=== PATIENT | male | born 1985 | race Caucasian/White ===

== ENCOUNTER 2019-03-19 09:15 | Observation (INO) | payer OTHER ==
[~2019-03-19 09:15] MED LIST: DEXAMETHASONE INJ 10 MG/ML VIAL ONE; KETOROLAC TROMETHAMINE INJ 30 MG/ML VIAL ONE; LIDOCAINE 1% 10 ML VIAL INJ ONE; ONDANSETRON INJ 4 MG/2 ML VIAL ONE; PROPOFOL 200 MG/20 ML VIAL IV ONE
--- NOTE | 2019-03-19 09:57 | RAD ---
EXAM DESCRIPTION: Abdomen Series CLINICAL HISTORY: 33 years Male, rt sided abd pain 12 hours COMPARISON: None. Findings: Three radiographs No acute cardiopulmonary abnormality. The lungs are clear. No pneumothorax. No pleural effusion. No free air. Moderate stool volume. Nonobstructive bowel gas pattern. No air-fluid level. No suspicious calcification identified. No acute osseous abnormality. IMPRESSION: No acute radiographic abnormality. Electronically signed by: Bryn Walker MD 03/19/2019 9:55 AM ECHOCARDIOGRAPH TECHNICIAN
--- NOTE | 2019-03-19 11:10 | CT ---
EXAM DESCRIPTION: Abdomen/Pelvis w/Contrast CLINICAL HISTORY: 33 years Male, rlq pain 24 hr, leukocytosis COMPARISON: Abdominal radiographs 07/18/2019 TECHNIQUE: CT of the abdomen and pelvis acquired with IV contrast material. Coronal and sagittal reformations provided. This exam was performed according to our departmental dose-optimization program, which includes automated exposure control, adjustment of the mA and/or kV according to patient size and/or use of iterative reconstruction technique. FINDINGS: Lung bases: Dependent atelectasis bilaterally. Solid Organs: Unremarkable liver, gallbladder, spleen, pancreas, adrenal glands, and kidneys. No hydronephroureter. GI tract: Normal stomach. No small bowel obstruction. Moderate stool in the proximal colon. Dilated thickened fluid-filled appendix measuring up to 10 mm with moderate periappendiceal stranding. No surrounding drainable fluid collection. Vascular: Normal. Musculoskeletal and soft tissues: No acute fracture or aggressive appearing osseous lesion. Chronic appearing bilateral L5 pars defects with trace anterolisthesis of L5 relative S1. Soft tissues unremarkable. Urinary bladder: Normal. Prostate: Normal. Other: None. IMPRESSION: 1. Acute uncomplicated appendicitis without periappendiceal fluid collection or intra-abdominal free air. Electronically signed by: René Waters MD 03/19/2019 11:08 AM ROUTE SALES DRIVER
[2019-03-19] MEDS ORDERED: SODIUM CHLORIDE 0.9% 1000ML 1,000 ML IVS ONE (11:26)
[2019-03-19] MEDS ORDERED: ceFAZolin SODIUM 2 GM in SODIUM CHLORIDE 0.9% 100ML 100 ML IVPB ONE (11:26)
[2019-03-19] MEDS ORDERED: ceFAZolin SODIUM 1 GM VIAL ONE (11:45)
[2019-03-19] MEDS ORDERED: SODIUM CHLORIDE 0.9% 100ML 0 ML IVPB ONE (11:45)
[2019-03-19] MEDS ORDERED: cefOXitin SODIUM 2 GM in SODIUM CHL 0.9% 50ML MIN-BAG+ 50 ML IVPB ONE (11:48)
[2019-03-19] MEDS ORDERED: SODIUM CHL 0.9% 50ML MIN-BAG+ 50 ML IVPB ONE ×2 (11:51→16:29)
[2019-03-19] MEDS ORDERED: cefOXitin SODIUM 2 GM INJ IVPB ONE ×2 (11:51→16:30)
--- NOTE | 2019-03-19 11:56 | ED.PDOC ---
History of Present Illness - General Chief Complaint: Abdominal Pain Stated Complaint: right sided belly pain since last night Time Seen by Provider: 03/19/19 09:28 Source: patient Exam Limitations: no limitations - History of Present Illness Initial Comments: the patient is a 33-year-old male presenting to the emergency room secondary to about 18 hours of right lower quadrant pain. No fever. No vomiting. He has had some nausea. No diarrhea. No previous abdominal surgeries. No previous pain in that location. No recent injuries. He does not take any blood thinners. No daily medicines. Pain is worse with palpation and movement. He is not hungry. He did not eat breakfast. Timing/Duration: other Severity: moderate Improving Factors: immobilization Worsening Factors: movement Associated Symptoms: malaise, nausea/vomiting Allergies/Adverse Reactions: Allergies NO KNOWN ALLERGY Allergy (Verified 03/19/19 09:22) Home Medications: Ambulatory Orders NK 03/19/19 Review of Systems - Review of Systems Constitutional: States: malaise EENTM: States: no symptoms reported Respiratory: States: no symptoms reported Cardiology: States: no symptoms reported Gastrointestinal/Abdominal: States: abdominal pain, nausea Genitourinary: States: no symptoms reported Musculoskeletal: States: no symptoms reported Skin: States: no symptoms reported Neurological: States: no symptoms reported Endocrine: States: no symptoms reported All other Systems: No Change from Baseline Past Medical History (General) - Patient Medical History Hx Seizures: No Hx Stroke: No Hx Dementia: No Hx Asthma: No Hx of COPD: No Hx Cardiac Disorders: No Hx Congestive Heart Failure: No Hx Pacemaker: No Hx Hypertension: No Hx Thyroid Disease: No Hx Diabetes: No Hx Gastroesophageal Reflux: No Hx Renal Disease: No Hx Cancer: No Hx Hepatitis C: No - Vaccination History Hx Tetanus, Diphtheria Vaccination: Yes Hx Influenza Vaccination: Yes Hx Pneumococcal Vaccination: No Immunizations Up to Date: Yes - Social History Hx Tobacco Use: No Hx Chewing Tobacco Use: No Hx Alcohol Use: Yes - SOCIAL Hx Substance Use: No Hx Substance Use Treatment: No Hx Depression: No Feels Threatened In Home Enviroment: No Feels Threatened In a Relationship: No Hx Physical Abuse: No Hx Emotional Abuse: No Hx Suspected Abuse: No - Female History Patient is a Female of Child Bearing Age (10 -59 yrs old): No Patient : No Family Medical History - Family History Mother Family History: No Known Living Status: Still Living Hx Family Asthma: No Hx Family Congestive Heart Failure: No Hx Family Hypertension: No Physical Exam - Physical Exam General Appearance: Alert Eye Exam: bilateral normal Ears, Nose, Throat: hearing grossly normal, normal ENT inspection Neck: full range of motion, supple Respiratory: lungs clear, normal breath sounds, no respiratory distress, no accessory muscle use Cardiovascular/Chest: normal peripheral pulses, regular rate, rhythm, no edema Peripheral Pulses: radial,right: 2+, radial,left: 2+ Gastrointestinal/Abdominal: soft, other - the patient does have right lower quadrant tenderness to palpation as well as some guarding. Rectal Exam: deferred Back Exam: no CVA tenderness, no vertebral tenderness Extremity: normal range of motion, non-tender, normal inspection, no pedal edema, normal capillary refill Neurologic: photographic editor II-XII nml as tested, alert, normal mood/affect, oriented x 3 Skin Exam: normal color Comments: Vital Signs - 24 hr 03/19/19 09:58 Temperature 98 F Pulse Rate [ 72 Left Radial] Respiratory 18 Rate Blood Pressure 126/88 [Left Arm] O2 Sat by Pulse 100 Oximetry Progress - Progress Progress: 03/19/19 12:00 the patient's 33-year-old male presenting to the emergency room secondary to what appears to be acute appendicitis. The patient has been started on antibiotics. General surgery has been contacted for evaluation. Plan will be for an appendectomy. The patient will remain nothing by mouth. Pain medications as needed. He is receiving a liter of IV fluids. - Results/Orders Results/Orders: Laboratory Tests 03/19/19 03/19/19 03/19/19 09:35 09:35 09:35 WBC 13.4 H RBC 4.91 Hgb 15.6 Hct 45.1 MCV 91.8 MCH 31.8 H MCHC 34.7 RDW 13.5 Plt Count 238 MPV 8.7 Absolute Neuts (auto) 10.50 H Absolute Lymphs (auto) 1.70 Absolute Monos (auto) 1.00 H Absolute Eos (auto) 0.20 Absolute Basos (auto) 0.00 Neutrophils % 78.4 H Lymphocytes % 12.8 L Monocytes % 7.2 Eosinophils % 1.2 Basophils % 0.4 Sodium 139 Potassium 4.2 Chloride 105 Carbon Dioxide 25 Anion Gap 13.2 BUN 14 Creatinine 0.76 BUN/Creatinine Ratio 18.4 Random Glucose 104 Serum Osmolality 278.3 Lactic Acid 0.9 Calcium 9.5 Total Bilirubin 1.0 AST 16 ALT 27 Alkaline Phosphatase 35 L Serum Total Protein 7.5 Albumin 4.9 Globulin 2.6 Albumin/Globulin Ratio 1.9 Amylase 32 Urine Color Urine Appearance Urine pH Ur Specific [place] Urine Protein Urine Glucose (UA) Urine Ketones Urine Blood Urine Nitrite Urine Bilirubin Urine Urobilinogen Ur Leukocyte Esterase Urine RBC Urine WBC Ur Epithelial Cells Amorphous Sediment Urine Bacteria Urine Mucus 03/19/19 09:35 WBC RBC Hgb Hct MCV MCH MCHC RDW Plt Count MPV Absolute Neuts (auto) Absolute Lymphs (auto) Absolute Monos (auto) Absolute Eos (auto) Absolute Basos (auto) Neutrophils % Lymphocytes % Monocytes % Eosinophils % Basophils % Sodium Potassium Chloride Carbon Dioxide Anion Gap BUN Creatinine BUN/Creatinine Ratio Random Glucose Serum Osmolality Lactic Acid Calcium Total Bilirubin AST ALT Alkaline Phosphatase Serum Total Protein Albumin Globulin Albumin/Globulin Ratio Amylase Urine Color Yellow Urine Appearance Clear Urine pH 5.5 Ur Specific [place] 1.025 Urine Protein Negative Urine Glucose (UA) Negative Urine Ketones >=160 Urine Blood Trace-lysed H Urine Nitrite Negative Urine Bilirubin Negative Urine Urobilinogen 0.2 Ur Leukocyte Esterase Negative Urine RBC 0-1 Urine WBC 0 Ur Epithelial Cells 0 Amorphous Sediment 1+ Urine Bacteria [address] scan of abdomen and pelvis shows acute appendicitis without perforation or abscess formation. He has a chronic pars defect. No acute pathology otherwise. See report for details. Moderate stool. Departure - Departure Clinical Impression: Appendicitis Qualifiers: Appendicitis type: acute appendicitis Acute appendicitis type: with localized peritonitis Appendicitis gangrene presence: unspecified whether gangrene present Appendicitis perforation presence: without perforation Appendicitis abscess presence: without abscess Qualified Code(s): K35.30 - Acute appendicitis with localized peritonitis, without perforation or gangrene Disposition: Admit Patient Departure Forms: ED Discharge - Pt. Copy, Patient Portal Self Enrollment Home Medications: Ambulatory Orders NK 03/19/19 Decision To Admit - Decistion To Admit Decision to Admit Reason: Medical Nature Decision to Admit Date: 03/19/19 Decision to Admit Time: 12:01
[2019-03-19] MEDS ORDERED: ROCURONIUM BROMIDE 10 MG/ML VIAL ONE (11:58)
[2019-03-19] MEDS ORDERED: BUPIVACAINE 0.25% W/EPI 50 ML VIAL INJ ONE ×2 (12:00→12:39)
[2019-03-19] MEDS ORDERED: MIDAZOLAM INJ 2 MG/2 ML VIAL ONE (12:10)
[2019-03-19] MEDS ORDERED: fentaNYL CITRATE INJ 50 MCG/ML AMP ONE (12:10)
[2019-03-19] MEDS ORDERED: ELECTROLYTE-A 1,000 ML IVS ONE (13:01)
--- NOTE | 2019-03-19 13:18 | HP ---
CHIEF COMPLAINT: Abdominal pain. HISTORY OF PRESENT ILLNESS: The patient is a 33-year-old male in his normal state of health who developed epigastric discomfort yesterday that moved to his right lower quadrant and worsened. There has been no fever, no nausea, vomiting, no change in bowel habits. He has no previous episode of like illness. PAST MEDICAL HISTORY: 1. Multiple orthopedic procedures. 2. Concussion. He has had no other hospitalizations and on abdominal operations. He has no history of anesthesia complications. MEDICATIONS: He takes no medications on a routine basis. ALLERGIES: NO KNOWN DRUG ALLERGIES. FAMILY HISTORY: Negative for diabetes, anesthesia complications or GI malignancies. SOCIAL HISTORY: He does not smoke. He drinks approximately once a week. REVIEW OF SYSTEMS: Otherwise no headaches, shortness of breath, chest pain. No change in bowel habits. No blood per rectum, no melanotic stools and no hematemesis. He denies urinary tract symptoms. There is no problem with his back. PHYSICAL EXAMINATION: GENERAL: The patient is awake, alert, cooperative, in moderate distress. VITAL SIGNS: The patient is currently afebrile, normotensive. HEENT: Sclerae nonicteric. Mucous membranes moist. NECK: Without adenopathy. BACK: Without CVA tenderness. CHEST: Equal breath sounds bilaterally and are clear. HEART: Regular rate and rhythm. ABDOMEN: Soft. Tender in the right lower quadrant with some guarding. RECTAL: Deferred. EXTREMITIES: Without cyanosis, clubbing or edema. LABORATORY: CT scan reveals an uncomplicated appendicitis without periappendiceal fluid or abscess and no free air. His white blood cell count was 13,000, hemoglobin 15.6, platelet count 238,000, 78% neutrophils. Chemistry shows potassium 4.2, creatinine 0.76. Liver functions within normal limits. Amylase 32. Urinalysis essentially clear except for ketones. Specific gravity 1.025. ASSESSMENT: 1. Abdominal pain. 2. Leukocytosis 3. Abnormal CT scan suspicious for appendicitis. PLAN: The risks, benefits and alternatives to laparoscopic appendectomy were discussed with the patient. He understands and agrees to proceed. He will be given 2 grams of Mefoxin prior to surgery. [id number]
[2019-03-19] MEDS ORDERED: HYDROmorphone HCL INJ 2 MG/ML VIAL IV PRN (13:52)
[2019-03-19] MEDS ORDERED: ONDANSETRON INJ 4 MG/2 ML VIAL IV PRN (13:52)
--- NOTE | 2019-03-19 14:14 | OP ---
DATE OF PROCEDURE: 03/19/19 PREOPERATIVE DIAGNOSIS: 1. Abdominal pain. 2. Abnormal CT scan suspicious for appendicitis. 3. Leukocytosis. POSTOPERATIVE DIAGNOSIS: 1. Abdominal pain. 2. Abnormal CT scan suspicious for appendicitis. 3. Leukocytosis. 4. Acute appendicitis. PROCEDURE: 1. Laparoscopy with appendectomy. SURGEON: Gigi Rondon MD. MEDICAL SECRETARY TEACHER: None. ANESTHESIA: General endotracheal anesthesia and local infiltration of 0.25% Marcaine with epinephrine. INDICATION: The patient is a 34-year-old male who developed abdominal discomfort yesterday in the epigastric area. It moved to the right lower quadrant and worsened. He presented to the Emergency Room where he was found to have a leukocytosis of 13,000. CT scan revealed an inflamed appendix with no sign of rupture. After the risks, benefits and alternatives to the procedure were discussed, he was given IV Mefoxin. He was brought to the Surgical Suite for laparoscopy, appendectomy and indicated procedures. FINDINGS: The appendix was indurated with some exudate. The base, however, seemed to be within normal limits. Pathology is pending. PROCEDURE: After the patient was brought to the Surgical Suite and placed in the supine position, he underwent general endotracheal anesthesia. He was then prepped and draped in the usual sterile manner. At this time, a surgical time- out was taken. The infraumbilical area was infiltrated with local anesthesia. A curvilinear incision was fashioned and carried down through the subcutaneous tissue to the midline fascia. Traction sutures were placed on either side of the midline. A small incision was made in the midline fascia. The peritoneum was opened bluntly. Korey trocar was introduced under direct vision into the abdominal cavity and fixed in place with a 20 mL balloon. CO2 was then insufflated until a pressure of 12 mmHg was reached and the abdomen was tympanitic in all four quadrants. When this was done, the laparoscope was introduced and the abdomen was inspected with the previously noted findings. A suprapubic 5 mm port was placed under direct vision in the usual manner. The right lower quadrant was explored and the appendix was identified. At this time, the left lower quadrant port was placed under direct vision in the usual manner. When this was done, the appendix was elevated. The base of the appendix was identified. Using a [place] dissector, the mesoappendix was divided at the base. The appendix was then stapled with a vascular load and the mesoappendix was divided with two more firings of the same vascular load. The appendix was placed in an EndoCatch bag and removed through the left lower quadrant port in the usual manner under direct vision. When this was done, the right lower quadrant was inspected. There was no obvious bleeding noted. A small amount of blood was removed using a 4x4 which was put in through the left lower quadrant port and removed through the same. When this was done, the left lower quadrant port was removed under direct vision. The fascia was reapproximated with two simple sutures of 0 Vicryl placed using the EndoClose device. The suprapubic port was removed and good hemostasis was noted there. At this point, the CO2, the laparoscope and the infraumbilical port were removed. The infraumbilical port site fascia was approximated with a single [id number] suture of 0 Vicryl. Subcutaneous tissue was irrigated with Marcaine. Skin edges were approximated loosely with skin santos. Sterile dressings were applied. The patient was awakened, his Mena catheter was removed and taken to the Recovery Room in good and stable condition. Estimated blood loss was less than 25 mL. All sponge, needle and instrument counts were correct. [facility][id number] [facility]
[2019-03-19] MEDS ORDERED: MEPERIDINE HCL 50 MG/ML VIAL ONE (14:21)
[2019-03-19] MEDS ORDERED: MORPHINE SULFATE INJ 10 MG/ML VIAL ONE (14:44)
[2019-03-19] MEDS: HYDROcodone 10MG/APAP 325MG 1 EA TAB PO PRN ×2 (16:24→20:39)
[2019-03-19] MEDS: LACTATED RINGERS 1,000 ML IVS PRN (17:26)
[2019-03-19] MEDS: cefOXitin SODIUM 2 GM in SODIUM CHL 0.9% 50ML MIN-BAG+ 50 ML IVPB SCH (17:27)
[2019-03-20] MEDS: LACTATED RINGERS 1,000 ML IVS PRN ×2 (00:01→08:59)
[2019-03-20] MEDS: HYDROcodone 10MG/APAP 325MG 1 EA TAB PO PRN ×3 (00:40→09:59)
[2019-03-20] MEDS ORDERED: cefOXitin SODIUM 2 GM INJ IVPB ONE ×2 (01:18→08:30)
[2019-03-20] MEDS ORDERED: SODIUM CHL 0.9% 50ML MIN-BAG+ 50 ML IVPB ONE ×2 (01:18→08:30)
[2019-03-20] MEDS: cefOXitin SODIUM 2 GM in SODIUM CHL 0.9% 50ML MIN-BAG+ 50 ML IVPB SCH ×2 (01:47→08:59)
[2019-03-20 06:27] VITALS: O2SAT 96
[2019-03-20 10:07] VITALS: BP 129/73; TEMP 98.7
[2019-03-20] MEDS ORDERED: MAGNESIUM HYDROXIDE 30 ML UD PO ONE (12:08)
--- NOTE | 2019-04-01 10:54 | DS ---
FINAL DIAGNOSIS: Acute appendicitis pending pathology report. SURGICAL PROCEDURE: Laparoscopic appendectomy on 03/19/19. HISTORY OF PRESENT ILLNESS: The patient is a 33-year-old male in his normal state of health who developed epigastric discomfort yesterday that moved to his right lower quadrant and worsened. There has been no fever, no nausea, vomiting, no change in bowel habits. He has no previous episode of like illness. LABORATORY: At time of discharge, the pathology report was pending. HOSPITAL COURSE: The patient was admitted from the Emergency Room to the surgical suite. After antibiotic therapy, laparoscopic appendectomy was performed without difficulty. The patient was admitted to observation and continued on IV Mefoxin. By the next morning, he was tolerating liquids, had some belching and fullness, but otherwise felt well. He had active bowel sounds. He was advanced to a full liquid diet, which he tolerated and given a dose of Milk of Magnesia. The afternoon of 03/20/19, he was discharged home. CONDITION ON DISCHARGE: Improved. DISPOSITION: The patient is to followup with me in one week. He was discharged on a regular diet and told to push fluids. He was told he could ambulate, but do no lifting or exercise. He was told he can shower, but not tub bath. He was discharged with a prescription for Ceftin 375 mg twice a day and some hydrocodone. He had instructions to call me sooner if he developed nausea, vomiting, fever, chills, increasing abdominal pain, drainage or redness of his wounds. #[id number] [facility]
== END 2019-03-20 12:45 | disposition home or self-care (01) ==
LOC: AMB 09:15 → ER 09:15 → EDSTATUS 12:04 → MS 15:30 → INTOOBSV 15:30
PROVIDERS: ADMIT Surgery; ATTEND Surgery
DX: K35.30 Acute appendicitis with localized peritonitis, without perforation or gangrene (principal); D72.829 Elevated white blood cell count, unspecified; R11.0 Nausea
CPT/HCPCS: 44970; 00840; 96361 ×2; 96366; 96365; 96376 ×2; J0694 ×4; J3010; J1885; J2175; J2270; J2405; J3490; J7030; J1100; J2250; J7050 ×4; J7120 ×3; 80048; 80053; 36415; 82150; 81001; 85025 ×2; 83605; 74019; 74177; 99285; G0378

== ENCOUNTER → 2019-10-14 | Outpatient (CLI) | payer OTHER ==
--- NOTE | 2019-10-14 20:17 | RAD ---
EXAM DESCRIPTION: Shoulder,Right 2 or More Views CLINICAL HISTORY: 33 years Male, PAIN IN RIGHT SHOULDER COMPARISON: None. Findings: Four views/radiographs Location: Right shoulder No acute fracture or dislocation. Mild acromioclavicular osteoarthritis. Soft tissues are unremarkable. Subacromial space is maintained. Visualized chest is clear. Glenohumeral relationship maintained. IMPRESSION: No evidence of acute process in the right shoulder. Electronically signed by: Bryn Walker MD 10/14/2019 6:07 PM CDT
== END ==
LOC: YCFC.O 10:38
PROVIDERS: ATTEND Family Medicine
DX: M25.511 Pain in right shoulder (principal)

== ENCOUNTER → 2019-11-20 | Outpatient (CLI) | payer OTHER | LOC: LAB.O 08:05 | PROVIDERS: ATTEND Family Medicine | DX: Z00.00 Encounter for general adult medical examination without abnormal findings (principal); Z13.220 Encounter for screening for lipoid disorders; R53.83 Other fatigue ==